=== PATIENT | male | born 1985 | race Caucasian/White ===

== ENCOUNTER 2024-06-25 02:35 | Emergency (ER) | payer OTHER ==
[2024-06-25 02:50] VITALS: RESP 18
[2024-06-25 03:04] LABS: Glucose,Whole Blood 76 mg/dL (70-110)
[2024-06-25 03:20] LABS: Basophils # (A) 0.06 10*3/uL (0.00-0.10); Basophils % (A) 0.6 %; Eosinophils # (A) 0.16 10*3/uL (0.04-0.35); Eosinophils % (A) 1.7 %; HCT 44.2 % (39.6-50.0); HGB 14.8 g/dL (13.0-17.0); Lymphocytes # (A) 2.03 10*3/uL (0.90-5.00); MCH 29.6 pg (27.0-32.0); MCHC 33.5 g/dL (32.0-37.0); MCV 88.4 fL (80.0-97.0); Monocytes # (A) 1.09 10*3/uL (0.20-1.00); Monocytes % (A) 11.3 %; Neutrophils % (A) 65.3 %; Platelet Count 268 10*3/uL (140-440); RDW 12.8 % (11.5-14.5); WBC 9.65 10*3/uL (4.50-10.00)
[2024-06-25 03:33] LABS: INR 0.9 (<1.2); Partial Thromboplastin Time 24.2 sec (22.0-30.0); Prothrombin Time 10.6 sec (10.0-12.5)
[2024-06-25 03:35] LABS: ALT 21 U/L (4-49); AST 26 U/L (17-59); African American GFR (CKD) >90 (>60 ml/min/1.73 sqM); Alcohol <10 mg/dL; Alkaline Phosphatase 66 U/L (38-126); Anion Gap 5 mmol/L; Blood Urea Nitrogen 13 mg/dL (9-20); Calcium 9.1 mg/dL (8.4-10.2); Carbon Dioxide 29 mmol/L (22-30); Chloride 105 mmol/L (98-107); Glucose 74 mg/dL (74-99); Non-African American GFR(CKD) >90 (>60 ml/min/1.73 sqM); Potassium 4.1 mmol/L (3.5-5.1); Sodium 139 mmol/L (137-145); Total Bilirubin 0.4 mg/dL (0.2-1.3); Total Protein 7.2 g/dL (6.3-8.2)
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
[2024-06-25] MEDS: MORPHINE SULFATE 4 MG/ML SYRINGE IV STA (04:29)
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
[2024-06-25 04:51] VITALS: BP 124/83; PULSE 79; TEMP 98.3
== END 2024-06-25 04:28 | disposition home or self-care (01) ==
LOC: EC 02:35
DX: S83.92XA Sprain of unspecified site of left knee, initial encounter (principal); M25.462 Effusion, left knee; F17.200 Nicotine dependence, unspecified, uncomplicated; V29.408A Other motorcycle driver injured in collision with unspecified motor vehicles in traffic accident, initial encounter; Y92.410 Unspecified street and highway as the place of occurrence of the external cause
CPT/HCPCS: 36415; 71045; 72170; 80053; 80320; 83605; 84484; 85025; 85610; 85730; 86850; 86900; 86901; 93005; 99284